=== PATIENT | female | born 1975 | race Caucasian/White ===

== ENCOUNTER 2020-05-07 16:23 | Emergency (ER) | payer MEDICAID, MEDICARE ==
[~2020-05-07] VITALS: Ht 152.4 cm; Wt 57.1 kg
[2020-05-07] MEDS ORDERED: DIPH,PERTUSS(ACELL),TET VAC/PF 0.5 ML IM-VACC ONE ×2 (17:00→20:23)
--- NOTE | 2020-05-07 20:33 | NUR ---
PT BACK TO ER ROOM AT THIS TIME. CAME INTO ED TODAY FOR R THUMB LAC, APPEARS TO BE A SUPERFICIAL .25 INCH LONG SCRATCH ALONG DORSAL THUMB CREASE, PT REPORTS SHE HASNT HAD A TDAP FOR YEARS. PT NAD, SITTING ON GURNEY, PLACED ON SPO2/BP MONITORING. WCTM. PT UP FOR RECHECK
[2020-05-07] MEDS ORDERED: NEOSPORIN OINT. PKT 1 PACKET ONE ×2 (20:37→20:47)
[2020-05-07] MEDS ORDERED: AMOXICILLIN/CLAV 875-125MG TABLET ONE (21:09)
--- NOTE | 2020-05-07 21:10 | NUR ---
PT MEDICATED PER AUG, NAD, DENIES ADDITIONAL QUESTIONS OR NEEDS AT THIS TIME. 5 RIGHTS VERIFIED. WCTM. PT TO BE DC'D
[2020-05-07 21:11] VITALS: BP 97/75
[2020-05-07] MEDS ORDERED: AMOXICILLIN/CLAV 875-125MG TABLET PO ONE (21:30)
--- NOTE | 2020-05-07 21:33 | NUR ---
Patient given discharge instructions and they have confirmed that they understand the instructions. Patient ambulatory AND STEADY WITH CANE. PT NAD, DENIES ADDITIONAL QUESTIONS OR NEEDS AT THIS TIME. NO PERSONAL BELONGINGS LEFT IN ROOM AT [place].
== END 2020-05-07 21:35 | disposition home or self-care (01) ==
LOC: ED 21:00
DX: S61.051A Open bite of right thumb without damage to nail, initial encounter (principal); W54.0XXA Bitten by dog, initial encounter; Y93.89 Activity, other specified; Y92.89 Other specified places as the place of occurrence of the external cause; Y99.8 Other external cause status
CPT/HCPCS: 90471; 90715; 99283

== ENCOUNTER 2020-05-27 15:48 | Emergency (ER) | payer MEDICARE, MEDICAID ==
[~2020-05-27] VITALS: Ht 152.4 cm; Wt 67.9 kg
--- NOTE | 2020-05-27 16:35 | NUR ---
DIAMOND BROKER. PT VOIDED SMALL AMOUNT (<10ML) IN COLLECTION CUP, UA COLLECTED AND WALKED TO LAB BY MARCELO GUIDE VISITOR AT THIS TIME, WILL SEE IF LAB CAN USE SMALL SPECIMEN PROVIDED. PT REMAINS IN LOBBY AWAITING ROOM. FLUMER. AWARE.
[2020-05-27 16:52] LABS: MICROSCOPIC INDICATED
[2020-05-27 17:07] LABS: ALBUMIN 3.8 g/dL (3.4-5.0); ANION GAP 5 mmol/L (5-15); CALCIUM 8.7 mg/dL (8.5-10.1); CHLORIDE 113 mmol/L (98-107)
[2020-05-27 17:12] LABS: ALANINE AMINOTRANSFERASE 67 U/L (12-78); ALKALINE PHOSPHATASE 136 U/L (45-117); BASOPHILS % (AUTO) 1 % (0-1); BILIRUBIN,TOTAL 0.3 mg/dL (0.2-1.0); CREATININE 0.78 mg/dL (0.55-1.02); EOSINOPHILS % (AUTO) 4 % (1-7); LYMPHOCYTES % (AUTO) 45 % (22-44); MEAN CORPUSCULAR HEMOGLOBIN 28.3 pg (27.0-34.8); MEAN CORPUSCULAR HGB CONC 33.2 g/dL (32.4-35.8); MEAN PLATELET VOLUME 9.6 fL (7.4-10.4); MONOCYTES % (AUTO) 10 % (2-9); NEUTROPHILS % (AUTO) 40 % (42-75); PLATELET COUNT 329 x10^3/uL (130-400); RED BLOOD COUNT 5.05 x10^6/uL (3.82-5.3); RED CELL DISTRIBUTION WIDTH 13.5 % (9.6-15.2); TOTAL PROTEIN 7.1 g/dL (6.4-8.2)
[2020-05-27 17:14] LABS: MD NO
--- NOTE | 2020-05-27 18:22 | NUR ---
loom blower note: Pt to room from lobby.
--- NOTE | 2020-05-27 18:51 | NUR ---
RECEIVED REPORT FROM AKIN MARTINES TO ASSUME CARE OF PT. PT. NEEDING IV AND STRAIGHT CATH UA.
--- NOTE | 2020-05-27 19:05 | NUR ---
STRAIGHT CATH UA COLLECTED PER ORDER. PT. TOLERATED WELL. PT. THEN AMBULATORY WITH CANE TO BR. WILL START IV AND MEDS WHEN PT. RETURNS TO ROOM.
[2020-05-27 19:39] LABS: MICROSCOPIC AUTO
--- NOTE | 2020-05-27 20:33 | NUR ---
PT. DENIES NEEDS. CHART UP FOR RECHECK BY ERP.
[2020-05-27] MEDS ORDERED: CEFTRIAXONE PMX 1GM/50ML 50 ML IV ONE (21:00)
[2020-05-27] MEDS ORDERED: CEFTRIAXONE PMX 1GM/50ML 50 ML ONE ×2 (21:11→21:57)
--- NOTE | 2020-05-27 21:18 | NUR ---
MED REQ SENT TO PHARMACY. PER. DR. COLEMAN NO BLOOD CULTURES NEEDED PRIOR TO IV ABX.
--- NOTE | 2020-05-27 21:52 | NUR ---
STILL HAVEN'T RECEIVED ROCEPHIN FROM PHARMACY; CALLED TO INQUIRE. THEY VERBALIZED IT IS BEING MADE.
--- NOTE | 2020-05-27 21:59 | NUR ---
PHARMACY CALLED AND STATED WE HAVE 4 DOSES OF ROCEPHIN IN OMNICELL; CONFIRMED THAT THERE WERE INDEED NO DOSES LEFT. CALLED PHARMACY BACK TO REQUEST MED.
--- NOTE | 2020-05-27 22:05 | NUR ---
MED RECEIVED; INFUSING NOW. PT. DENIES NEEDS.
[2020-05-27 22:53] VITALS: BP 99/58
== END 2020-05-27 22:55 | disposition home or self-care (01) ==
LOC: ED 18:41
DX: G35 Multiple sclerosis (principal); N30.01 Acute cystitis with hematuria; I45.10 Unspecified right bundle-branch block; R94.31 Abnormal electrocardiogram [ECG] [EKG]
CPT/HCPCS: 36415; 80053; 81001; 83605; 85025; 87077; 87086; 93005; 96365; 96367; 99284; J0696; J2930; 87186